=== PATIENT | female | born 1995 | race Caucasian/White ===

== ENCOUNTER 2019-09-27 07:47 | Emergency (ER) | payer OTHER, SELFPAY ==
[2019-09-27 08:05] VITALS: BP 109/77; PULSE 96; RESP 18; TEMP 36.6; O2SAT 97; BMI 29.0
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
[2019-09-27] MEDS: acetaminophen 500 mg Tablet 1000 MG PO (08:52)
[2019-09-27 09:06] LABS: Basophils # 0.1 10^3/uL (0.0-0.1); Basophils % 0.7 %; Eosinophils # 0.2 10^3/uL (0.0-0.8); Eosinophils % 2.1 %; Hematocrit 44.8 % (37.0-47.0); Hemoglobin 14.8 g/dL (11.5-15.3); Lymphocytes % 22.5 %; Mean Corpuscular Volume 93.9 fL (81-99); Mean Platelet Volume 9.7 fL (7.4-10.4); Monocytes # 0.8 10^3/uL (0.2-0.9); Monocytes % 9.7 %; Neutrophils # 5.6 10^3/uL (1.8-7.7); Neutrophils % 64.8 %; Nucleated Red Blood Cells % 0 %; Platelet Count 371 10^3/cmm (130-400); Red Blood Count 4.77 10^6/uL (4.1-5.3); Red Cell Distribution Width 12.4 % (12.1-15.1); White Blood Count 8.7 10^3/uL (4.0-10.0)
[2019-09-27 09:23] LABS: Lactate (Lactic Acid level) 1.2 mmol/L (0.5-2.2)
[2019-09-27 09:24] LABS: Alanine Aminotransferase 42 U/L (0-33); Albumin Level 5.2 g/dL (3.5-5.2); Alkaline Phosphatase 66 IU/L (35-105); Anion Gap 16.2 (5-19); Aspartate Amino Transferase 28 U/L (0-32); Blood Urea Nitrogen 8 mg/dL (6-20); Calcium 9.4 mg/dL (8.5-10.5); Carbon Dioxide 25 mmol/L (22-29); Chloride 104 mmol/L (98-107); Creatinine Clr Calc Pharmacy 154.4061; Globulin 2.6 g/dL (1.3-4.6); Glomerular Filtration Rate 121.8 mL/min (90-130); Glucose 101 mg/dL (65-115); Osmolality Calculated 288 mOsm/kg (285-295); Potassium 4.2 mmol/L (3.5-5.1); Sodium 141 mmol/L (136-145); Total Bilirubin 0.3 mg/dL (0.15-1.2); Total Protein 7.8 g/dL (6.6-8.7)
[2019-09-27 09:36] LABS: HCG, Serum Qual Negative (Negative)
[2019-09-27] MEDS: iohexol 350 mg/mL 100 mL Btl IV (10:08)
[2019-09-27] MEDS: iohexol 300 mg/mL 100 mL Btl IV (10:09)
[2019-09-27] MEDS: lamoTRIgine 100 mg Tablet 200 MG PO (13:30)
[2019-09-27] MEDS: ondansetron 2 mg/ML SDV 2 mL 4 MG IVP (14:28)
[2019-09-27] MEDS: lidocaine 1% INJ 20 mL IM (14:31)
[2019-09-27] MEDS: cefTRIAXone 250 mg SDV IM (14:31)
[2019-09-27] MEDS: tetanus-dipt-pertussis 0.5 mL SDV IM (14:31)
[2019-09-27] MEDS: azithromycin 250 mg Tablet 1000 MG PO (14:32)
[2019-09-27] MEDS: HYDROcodone-acetaminophen 5-325 mg Tablet 1 TAB PO (14:41)
[2019-09-27 14:55] VITALS: BP 133/88; PULSE 108; RESP 18; O2SAT 98
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
== END 2019-09-27 14:55 | disposition home or self-care (01) ==
PROVIDERS: Emergency Medicine; Emergency Provider Nurse Practitioner Family
DX: T74.21XA Adult sexual abuse, confirmed, initial encounter (principal); T71.9XXA Asphyxiation due to unspecified cause, initial encounter; W49.09XA Other specified item causing external constriction, initial encounter; R56.9 Unspecified convulsions; F17.210 Nicotine dependence, cigarettes, uncomplicated; R58 Hemorrhage, not elsewhere classified; R10.2 Pelvic and perineal pain; Z23 Encounter for immunization
CPT/HCPCS: 12345; 70450; 70496; 70498; 74177; 80053; 83605; 84703; 85025; 86850; 86900; 90715; 96372; 96374; 96375; 99282; J0696; J2001; J2405; Q0144; Q9967